=== PATIENT | male | born 1985 | race Caucasian/White ===

== ENCOUNTER 2021-10-26 11:52 | Day surgery (SDC) | payer OTHER ==
[2021-10-19 15:31] VITALS: BMI 22.8
[~2021-10-26 11:52] MED LIST: HYDROmorphone 0.5 MG/0.5 ML SYRINGE IVP PRN; LACTATED RINGERS 1,000 ML IV SCH; LIDOCAINE 1% (10MG/ML) FOR IV START INTRADERMA PRN
[2021-10-26] MEDS ORDERED: ONDANSETRON 4 MG/2 ML VIAL ONE (12:35)
[2021-10-26] MEDS ORDERED: MIDAZOLAM 2 MG/2 ML VIAL IVP ONE (12:45)
[2021-10-26] MEDS ORDERED: .fentaNYL (PF) 50 MCG/ML 2 ML AMP IVP ONE (12:45)
[2021-10-26] MEDS ORDERED: ONDANSETRON 4 MG/2 ML VIAL IVP ONE (12:51)
[2021-10-26] MEDS ORDERED: DEXAMETHASONE SOD PHOSPHATE 4 MG/ML 1 ML VIAL IVP ONE (12:51)
--- NOTE | 2021-10-26 13:26 | P.ANPRN ---
Procedure Note - Anesthesia - Nerve Block Performed Right Popliteal Single Time Out Performed: Yes (1241) Date of Procedure: 10/26/21 Procedure Start Time: 12:43 Procedure Stop Time: 12:48 Location of Patient: PreOp Indication: Acute Post-Operative Pain, Requested by Surgeon Specifically requested for management of pain by DrKarely: Garcia Cornelius Sedation Type: Sedate with meaningful contact maintained Preparation: Sterile Prep Position: Supine Catheter: None Needle Types: Pajunk Needle Gauge: 21 Ultrasound used to visualize needle placement: Yes Ultrasound used to observe medication spread: Yes Injectate: 0.5% Ropivacaine (see comment for volume) (15cc + 5cc nacl pf) Blood Aspirated: No Pain Paresthesia on Injection Noted: No Resistance on Injection: Normal Image Stored and Saved: Yes Events: Uneventful and Well Tolerated Right Adductor Canal Single Time Out Performed: Yes (1241) Date of Procedure: 10/26/21 Procedure Start Time: 12:49 Procedure Stop Time: 12:52 Location of Patient: PreOp Indication: Acute Post-Operative Pain, Requested by Surgeon Specifically requested for management of pain by Dr.: Garcia Cornelius Position: Supine Catheter: None Needle Types: Pajunk Needle Gauge: 21 Ultrasound used to visualize needle placement: Yes Ultrasound used to observe medication spread: Yes Injectate: 0.5% Ropivacaine (see comment for volume) (15cc + 5cc nacl) Blood Aspirated: No Pain Paresthesia on Injection Noted: No Resistance on Injection: Normal Image Stored and Saved: Yes Events: Uneventful and Well Tolerated
[2021-10-26] MEDS ORDERED: MIDAZOLAM 2 MG/2 ML VIAL ONE (14:20)
[2021-10-26] MEDS ORDERED: ROPIVACAINE 5 MG/ML 30 ML VIAL ONE (14:20)
[2021-10-26] MEDS ORDERED: LIDOCAINE 1% INJ 10MG/ML (20 ML MDV) ONE (14:20)
[2021-10-26] MEDS ORDERED: PROPOFOL 10 MG/ML 20 ML VIAL IV ONE (14:20)
[2021-10-26] MEDS ORDERED: .fentaNYL (PF) 50 MCG/ML 2 ML AMP ONE (14:20)
--- NOTE | 2021-10-26 15:25 | P.OP ---
Date of Procedure: 10/26/21 Preoperative Diagnosis: 1. Gastroc equinus right leg 2. Achilles tendinitis right leg Postoperative Diagnosis: 1. Same 2. Same Procedure(s) Performed: 1. Gastroc recession right leg 2. PRP injection into right Achilles tendon insertion Anesthesia: CATE Surgeon: Garcia Cornelius Estimated Blood Loss (ml): 3 Pathology: none sent Condition: stable Disposition: PACU Indications for Procedure: Achilles tendinitis secondary to gastroc equinus. Symptoms were unresponsive to conservative treatment. Description of Procedure: Prior to the patient being brought to the operating room, anesthesia administered a nerve block on the right lower extremity using ultrasonic guidance and having the patient under mild sedation. The patient was then brought into the operating room and placed on table in the supine position. Timeout was taken to confirm correct patient identifiers, correct procedure, and correct site of surgery. When all staff in the room were in agreement with the timeout, the patient was induced and placed under general anesthesia. A well-padded tourniquet was placed on the right thigh. And then the right leg was prepped and draped in the usual manner. The right leg was exsanguinated with the Esmarch bandage and with the knee slightly flexed and the tourniquet inflated to 250 mmHg. Attention was directed to the posterior medial aspect of the right leg. The gastroc muscle belly was identified and the superior aspect of the incision was started approximately 4 cm distal to this point. The incision was deepened down to the subcutaneous tissue careful to identify, avoid, and retract any neurovascular structures and cauterize any bleeding vessels. Blunt dissection was carried down to the fascia overlying the aponeurosis. The fascia was incised and bluntly removed from the underlying aponeurosis. Then a transverse incision was made through the gastroc aponeurosis from lateral to medial full- thickness down to muscle. Care was taken to avoid as much trauma to the muscles possible. Once completed ankle was dorsiflexed and a 1-1/2-2 cm gap appeared in the aponeurosis, indicating a adequate release. The wound is then thoroughly irrigated with antibiotic saline. Subcu closure was done with 4-0 Monocryl. Skin closure was done with 4-0 Stratafix in a running subcuticular manner. Dermal glue was applied and allowed to dry. Steri-Strips are placed across incision. While the patient was in the preoperative area, anesthesia had also obtained 60 mL of venous blood. This is then given to the [employer] sales representative we utilized to centrifuged to spend down and obtain the injectable PRP. That process had completed during the gastroc recession, and the PRP was brought to the back table and loaded into a syringe. Utilizing a 22-gauge needle several injection points are made at the Achilles insertion while simultaneously injecting the PRP material. This is done and encompassed the entire insertional area. An [employer] Gemzar dressing was applied over both areas. A bulky dry dressings applied the right leg. The tourniquet was released and capillary refill return to all digits on the right foot. Then the patient was placed in a well molded, well padded plaster posterior mold/sugar tong splint. The splint was held at 90 as it dried. Once dried anesthesia was reversed and the patient was taken recovery with vital signs stable.
[2021-10-26 16:03] VITALS: TEMP 96.9
[2021-10-26 16:05] VITALS: RESP 16
[2021-10-26 17:08] VITALS: BP 102/68; PULSE 68
== END 2021-10-26 17:15 | disposition home or self-care (01) ==
LOC: OR 11:52
PROVIDERS: ATTEND Podiatrist
DX: M21.961 Unspecified acquired deformity of right lower leg (principal); M76.61 Achilles tendinitis, right leg; F32.A Depression, unspecified; Z79.1 Long term (current) use of non-steroidal anti-inflammatories (NSAID); Z79.899 Other long term (current) drug therapy; Z88.0 Allergy status to penicillin; Z83.3 Family history of diabetes mellitus
CPT/HCPCS: 0232T; 27687; 64445; 64447; 76942